=== PATIENT | male | born 1985 | race Caucasian/White ===

== ENCOUNTER 2019-10-21 11:38 | Emergency (ER) | payer SELFPAY ==
[~2019-10-21] VITALS: Ht 165.1 cm; Wt 83.9 kg
[~2019-10-21 11:38] MED LIST: AZU500 PO; BACTRIM1 TAB PO; COLACE100 MG PO; ELA25 PO; FERROUS SULFAT325 M2 PO; FLA250 PO; LAC PO; LEV500 PO; NOR10T PO; NORCO1 TA2 PO; PREDNISONE20 MG; PRILOSEC20 MG PO
[2019-10-21 11:47] VITALS: Ht 165.1 cm; Wt 83.9 kg
[2019-10-21 13:33] LABS: BASOPHIL % 0.4 % (0-2); PLATELET COUNT 433 x10^3mcL (130-400); RED CELL DISTRIBUTION WIDTH 18.2 % (11.5-14.5)
[2019-10-21 13:53] LABS: microscopic required? NO
[2019-10-21 13:57] LABS: CARBON DIOXIDE 25.5 mmol/L (21-32); CHLORIDE SERUM 108 mmol/L (98-107); CREATININE SERUM 0.6 mg/dL (0.7-1.3); GFR1 > 60 mL/min; GLUCOSE SERUM 101 mg/dL (74-106); POTASSIUM SERUM 4.2 mmol/L (3.5-5.1); SODIUM SERUM 143 mmol/L (136-145)
[2019-10-21 14:04] LABS: ALBUMIN 3.8 g/dL (3.4-5.0); ALKALINE PHOSPHATASE 52 U/L (46-116); ALT/SGPT 20 U/L (16-63); AST/SGOT 11 U/L (15-37); BILIRUBIN TOTAL 0.2 mg/dL (0.20-1.00); CHOLESTEROL 136 mg/dL (<200); HDL CHOLESTEROL 43 mg/dL (40-60); LIPASE 164 IU/L (73-393); TOTAL PROTEIN, SERUM 7.3 g/dL (6.4-8.2)
[2019-10-21 14:14] LABS: UA SPECIFIC GRAVITY 1.025 (1.005-1.035); urine erythrocyte NEGATIVE (NEGATIVE)
[2019-10-21 14:27] LABS: AMPHETAMINE QUAL UR NONE DETECTED (See below)
[2019-10-21 15:23] VITALS: BP 133/87
== END 2019-10-21 15:23 | disposition home or self-care (01) ==
LOC: ED 11:38
PROVIDERS: Emergency Medicine
DX: D64.9 Anemia, unspecified (principal); K76.0 Fatty (change of) liver, not elsewhere classified; F19.20 Other psychoactive substance dependence, uncomplicated; F17.210 Nicotine dependence, cigarettes, uncomplicated; Z71.6 Tobacco abuse counseling; Z90.89 Acquired absence of other organs
CPT/HCPCS: 36415; 85378; 99406; G0480; J1885

== ENCOUNTER 2019-10-23 14:05 | Emergency (ER) | payer SELFPAY ==
[~2019-10-23] VITALS: Ht 165.1 cm; Wt 83.9 kg
[2019-10-23 14:09] VITALS: Ht 165.1 cm; Wt 83.9 kg
[2019-10-23 14:58] LABS: BASOPHIL % 0.4 % (0-2); PLATELET COUNT 458 x10^3mcL (130-400); RED CELL DISTRIBUTION WIDTH 18.4 % (11.5-14.5)
[2019-10-23 16:03] LABS: CALCIUM 9.3 mg/dL (8.5-10.1); CARBON DIOXIDE 21.3 mmol/L (21-32); CHLORIDE SERUM 104 mmol/L (98-107); CREATININE SERUM 0.7 mg/dL (0.7-1.3); GFR1 > 60 mL/min; GLUCOSE SERUM 81 mg/dL (74-106); POTASSIUM SERUM 3.6 mmol/L (3.5-5.1); SODIUM SERUM 139 mmol/L (136-145)
[2019-10-23 16:10] LABS: ALBUMIN 4.5 g/dL (3.4-5.0); ALKALINE PHOSPHATASE 57 U/L (46-116); ALT/SGPT 20 U/L (16-63); AST/SGOT 14 U/L (15-37); BILIRUBIN TOTAL 0.2 mg/dL (0.20-1.00); TOTAL PROTEIN, SERUM 8.1 g/dL (6.4-8.2)
[2019-10-23 16:57] VITALS: BP 135/72
== END 2019-10-23 16:57 | disposition home or self-care (01) ==
LOC: ED 14:05
DX: R10.11 Right upper quadrant pain (principal); R11.2 Nausea with vomiting, unspecified
CPT/HCPCS: 36415; 99406